=== PATIENT | male | born 1980 | race Caucasian/White ===

== ENCOUNTER 2023-12-10 10:30 | Emergency (ER) | payer OTHER, SELFPAY ==
[2023-12-10 10:32] VITALS: BP 137/104; PULSE 91; RESP 16; TEMP 36.5; O2SAT 99
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
== END 2023-12-10 14:23 | disposition home or self-care (01) ==
LOC: ANHED 14:14
PROVIDERS: Emergency Provider Physician Assistant; PCP Family Medicine
DX: S13.4XXA Sprain of ligaments of cervical spine, initial encounter (principal); V63.5XXA Driver of heavy transport vehicle injured in collision with car, pick-up truck or van in traffic accident, initial encounter
CPT/HCPCS: 99282